=== PATIENT | female | born 1970 | race Caucasian/White ===

== ENCOUNTER 2016-04-02 18:17 | Emergency (ER) | payer SELFPAY | END 2016-04-02 21:42 | disposition home or self-care (01) | LOC: D.ER 18:17 | DX: G43.909 Migraine, unspecified, not intractable, without status migrainosus (principal); E11.9 Type 2 diabetes mellitus without complications; Z79.4 Long term (current) use of insulin; I10 Essential (primary) hypertension; G47.00 Insomnia, unspecified ==

== ENCOUNTER 2016-08-10 18:28 | Emergency (ER) | payer SELFPAY | END 2016-08-10 19:37 | disposition home or self-care (01) | LOC: D.ER 18:28 | DX: R51 Headache (principal); E11.9 Type 2 diabetes mellitus without complications; Z79.4 Long term (current) use of insulin; I10 Essential (primary) hypertension; G47.00 Insomnia, unspecified ==

== ENCOUNTER 2016-11-07 14:47 | Emergency (ER) | payer SELFPAY ==
[2016-11-07 17:19] LABS: BASOPHILS 0.3 % (0-2); EOSINOPHILS 1.8 % (0-7); HEMATOCRIT 47.7 % (36.0-48.0); HEMOGLOBIN 16.8 g/dL (12-16); IMMATURE GRANULOCYTES 0.5 % (0-5); MCH 33.4 pg (26.0-34.0); MCHC 35.2 g/dL (31.0-37.0); MCV 94.8 fL (80.0-100.0); MEAN PLATELET VOLUME 12.7 fL (7.4-10.4); MONOCYTES 7.8 % (2-11); NEUTROPHILS 66.6 % (40-80); PLATELET COUNT 221 10x3/uL (130-400); RBC 5.03 10x6/uL (4.00-5.40)
[2016-11-07 17:29] LABS: APPEARANCE HAZY (CLEAR); BILIRUBIN NEGATIVE (NEGATIVE); COLOR YELLOW (YELLOW); GLUCOSE 1000 mg/dL (NEGATIVE); KETONE MODERATE mg/dL (NEGATIVE); LEUKOCYTE ESTERASE 2+ (NEGATIVE); NITRITE NEGATIVE (NEGATIVE); PROTEIN TRACE mg/dL (NEGATIVE); SPECIFIC GRAVITY 1.015 (1.005-1.020); UROBILINOGEN NORMAL (NORMAL)
[2016-11-07 17:31] LABS: BACTERIA MODERATE /hpf (NONE SEEN); RED CELLS - URINE 0-5 /hpf (0-5); YEAST <1+ /hpf (NONE SEEN)
[2016-11-07 17:48] LABS: AMYLASE - SERUM 48 U/L (25-115); LIPASE 162 U/L (73-393)
== END 2016-11-07 21:11 | disposition home or self-care (01) ==
LOC: D.ER 14:47
PROVIDERS: Physician Assistant
DX: R10.13 Epigastric pain (principal); R11.2 Nausea with vomiting, unspecified; N39.0 Urinary tract infection, site not specified; E11.9 Type 2 diabetes mellitus without complications; Z79.4 Long term (current) use of insulin; I10 Essential (primary) hypertension; F17.200 Nicotine dependence, unspecified, uncomplicated

== ENCOUNTER 2016-11-14 04:18 | Emergency (ER) | payer SELFPAY | END 2016-11-14 04:47 | disposition home or self-care (01) | LOC: D.ER 04:18 | DX: R51 Headache (principal) ==

== ENCOUNTER 2016-12-05 16:17 | Emergency (ER) | payer OTHER | END 2016-12-05 18:14 | disposition home or self-care (01) | LOC: D.ER 16:17 | DX: R51 Headache (principal); E11.9 Type 2 diabetes mellitus without complications; Z79.4 Long term (current) use of insulin; I10 Essential (primary) hypertension; F17.200 Nicotine dependence, unspecified, uncomplicated ==

== ENCOUNTER 2017-10-12 19:26 | Emergency (ER) | payer OTHER ==
[~2017-10-12] VITALS: Ht 152.4 cm; Wt 68.2 kg
[2017-10-12 19:32] VITALS: Ht 152.4 cm; Wt 68.2 kg
[2017-10-12] MEDS ORDERED: HUMULIN R100 U/ML SC (19:33)
[2017-10-12] MEDS ORDERED: VICTOZA0.6 MG/0.1 SQ (19:34)
[2017-10-12] MEDS ORDERED: STADOL NASAL S2.5 ML (19:34)
[2017-10-12 19:57] LABS: BASOPHILS 0.4 % (0-2); EOSINOPHILS 3.9 % (0-7); HEMATOCRIT 41.4 % (36.0-48.0); HEMOGLOBIN 14.7 g/dL (12-16); IMMATURE GRANULOCYTES 0.4 % (0-5); LYMPHOCYTES 32.1 % (15-50); MCH 32.5 pg (26.0-34.0); MCHC 35.5 g/dL (31.0-37.0); MCV 91.6 fL (80.0-100.0); MEAN PLATELET VOLUME 12.5 fL (7.4-10.4); MONOCYTES 7.2 % (2-11); PLATELET COUNT 159 10x3/uL (130-400); RBC 4.52 10x6/uL (4.00-5.40); RDW 12.8 % (11.5-14.5); WBC 8.5 10x3/uL (4.8-10.8)
[2017-10-12 20:13] LABS: KETONE - SERUM NEGATIVE (NEGATIVE)
[2017-10-12 20:47] LABS: ALBUMIN 3.4 g/dL (3.4-5.0); ALKALINE PHOSPHATASE 97 U/L (46-116); ALT (SGPT) 34 U/L (10-68); BILIRUBIN - TOTAL 0.28 mg/dL (0.2-1.3); CALC OSMOLALITY 280 mosm/kg (275-300); CALCIUM 8.7 mg/dL (8.5-10.1); CARBON DIOXIDE 27.8 mmol/L (21.0-32.0); CHLORIDE - SERUM 97 mmol/L (98-107); GLUCOSE 386 mg/dL (74-106); POTASSIUM - SERUM 3.9 mmol/L (3.5-5.1); PROTEIN - SERUM 7.3 g/dL (6.4-8.2); SODIUM 133 mmol/L (136-145); UREA NITROGEN 10 mg/dL (7-18); eGFR NON AFRICAN AMERICAN 63 mL/min (90-120)
[2017-10-12] MEDS ORDERED: COMPAZINE10 MG PO (21:44)
[2017-10-12 22:09] LABS: APPEARANCE CLEAR (CLEAR); BILIRUBIN NEGATIVE (NEGATIVE); COLOR YELLOW (YELLOW); GLUCOSE 1000 mg/dL (NEGATIVE); KETONE NEGATIVE (NEGATIVE); NITRITE NEGATIVE (NEGATIVE); PROTEIN NEGATIVE (NEGATIVE); UROBILINOGEN NORMAL (NORMAL)
[2017-10-12 22:12] LABS: BACTERIA MODERATE /hpf (NONE SEEN); EPITHELIAL CELLS 0-5 /hpf (0-5); WHITE CELLS - URINE 0-5 /hpf (0-5)
[2017-10-12 22:13] LABS: YEAST >1+ WITH HYPHAE /hpf (NONE SEEN)
[2017-10-12 22:53] VITALS: BP 122/75
== END 2017-10-12 22:53 | disposition home or self-care (01) ==
LOC: D.ER 19:26
PROVIDERS: Family Medicine
DX: E11.65 Type 2 diabetes mellitus with hyperglycemia (principal); Z79.4 Long term (current) use of insulin; F17.200 Nicotine dependence, unspecified, uncomplicated

== ENCOUNTER 2017-12-16 19:28 | Emergency (ER) | payer OTHER ==
[~2017-12-16] VITALS: Ht 152.4 cm; Wt 77.3 kg
[~2017-12-16 19:28] MED LIST: COMPAZINE10 MG PO; HUMULIN R100 U/ML SC; STADOL NASAL S2.5 ML; VICTOZA0.6 MG/0.1 SQ
[2017-12-16 19:47] VITALS: Ht 152.4 cm; Wt 77.3 kg
[2017-12-16 21:05] VITALS: BP 185/86
== END 2017-12-16 21:08 | disposition home or self-care (01) ==
LOC: D.ER 19:28
DX: G43.909 Migraine, unspecified, not intractable, without status migrainosus (principal); E11.9 Type 2 diabetes mellitus without complications

== ENCOUNTER 2018-08-30 13:29 | Emergency (ER) | payer SELFPAY ==
[~2018-08-30] VITALS: Ht 152.4 cm; Wt 72.7 kg
[2018-08-30 13:44] VITALS: Ht 152.4 cm; Wt 72.7 kg
[2018-08-30] MEDS ORDERED: VERELAN PM100 MG PO (13:49)
[2018-08-30] MEDS ORDERED: PAXIL40 MG PO (13:49)
[2018-08-30] MEDS ORDERED: NEURONTIN 300300 MG PO (13:50)
[2018-08-30] MEDS ORDERED: MOBIC7.5 MG PO (13:50)
[2018-08-30] MEDS ORDERED: CATAPRES0.1 MG PO (13:50)
[2018-08-30] MEDS ORDERED: TOPROL XL100 MG PO (13:51)
[2018-08-30] MEDS ORDERED: TRAZODONE HCL150 MG PO (13:52)
[2018-08-30 14:46] LABS: ALBUMIN 3.2 g/dL (3.4-5.0); ALKALINE PHOSPHATASE 110 U/L (46-116); ALT (SGPT) 38 U/L (10-68); BILIRUBIN - TOTAL 0.33 mg/dL (0.2-1.3); CALC OSMOLALITY 280 mosm/kg (275-300); CALCIUM 8.8 mg/dL (8.5-10.1); CARBON DIOXIDE 28.4 mmol/L (21.0-32.0); CHLORIDE - SERUM 97 mmol/L (98-107); CREATININE - SERUM 0.9 mg/dL (0.6-1.3); GLUCOSE 371 mg/dL (74-106); POTASSIUM - SERUM 3.9 mmol/L (3.5-5.1); PROTEIN - SERUM 6.9 g/dL (6.4-8.2); SODIUM 133 mmol/L (136-145); UREA NITROGEN 12 mg/dL (7-18); eGFR NON AFRICAN AMERICAN 70 mL/min (90-120)
[2018-08-30 14:50] LABS: AMYLASE - SERUM 81 U/L (25-115); LIPASE 175 U/L (73-393); TROPONIN-I < 0.017 ng/mL (0.000-0.060)
[2018-08-30 14:57] LABS: BASOPHILS 0.3 % (0-2); EOSINOPHILS 2.7 % (0-7); HEMOGLOBIN 13.9 g/dL (12-16); IMMATURE GRANULOCYTES 0.4 % (0-5); LYMPHOCYTES 33.6 % (15-50); MCH 32.3 pg (26.0-34.0); MCHC 35.6 g/dL (31.0-37.0); MCV 90.7 fL (80.0-100.0); MEAN PLATELET VOLUME 11.9 fL (7.4-10.4); MONOCYTES 6.1 % (2-11); NEUTROPHILS 56.9 % (40-80); RDW 12.9 % (11.5-14.5); WBC 7.5 10x3/uL (4.8-10.8)
[2018-08-30 15:00] LABS: PLATELET COUNT 231 10x3/uL (130-400)
[2018-08-30 16:12] VITALS: BP 182/72
[2018-08-30] MEDS ORDERED: ZOFRAN ODT4 MG/UDTAB PO (16:12)
[2018-08-30] MEDS ORDERED: GOLYTELY SOLU4000 ML PO (16:12)
[2018-08-30 16:29] LABS: APPEARANCE HAZY (CLEAR); BILIRUBIN NEGATIVE (NEGATIVE); COLOR YELLOW (YELLOW); GLUCOSE 250 mg/dL (NEGATIVE); KETONE NEGATIVE (NEGATIVE); NITRITE NEGATIVE (NEGATIVE); PROTEIN NEGATIVE (NEGATIVE); UROBILINOGEN NORMAL (NORMAL)
[2018-08-30 16:33] LABS: BACTERIA MANY /hpf (NONE SEEN); EPITHELIAL CELLS 0-5 /hpf (0-5); RED CELLS - URINE 0-5 /hpf (0-5); WHITE CELLS - URINE 0-5 /hpf (0-5)
== END 2018-08-30 16:56 | disposition home or self-care (01) ==
LOC: D.ER 13:29
PROVIDERS: Family Medicine
DX: K59.00 Constipation, unspecified (principal); R10.9 Unspecified abdominal pain; R11.0 Nausea

== ENCOUNTER 2019-08-12 20:35 | Emergency (ER) | payer SELFPAY ==
[~2019-08-12] VITALS: Ht 162.6 cm; Wt 75.0 kg
[~2019-08-12 20:35] MED LIST changes: +CATAPRES0.1 MG PO; +GOLYTELY SOLU4000 ML PO; +MOBIC7.5 MG PO; +NEURONTIN 300300 MG PO; +PAXIL40 MG PO; +TOPROL XL100 MG PO; +TRAZODONE HCL150 MG PO; +VERELAN PM100 MG PO; +ZOFRAN ODT4 MG/UDTAB PO
[2019-08-12 20:55] VITALS: Ht 162.6 cm; Wt 75.0 kg
[2019-08-12] MEDS ORDERED: CYCLOBENZAPRINE10 MG PO (21:00)
[2019-08-12] MEDS ORDERED: RISPERDAL2 MG PO (21:01)
[2019-08-12] MEDS ORDERED: GLUCOPHAGE1000 MG PO (21:01)
[2019-08-12] MEDS ORDERED: GLUCOTROL ER2.5 MG PO (21:01)
[2019-08-12 22:27] VITALS: BP 128/91
== END 2019-08-12 22:27 | disposition home or self-care (01) ==
LOC: D.ER 20:35
DX: G43.909 Migraine, unspecified, not intractable, without status migrainosus (principal); I10 Essential (primary) hypertension; E11.9 Type 2 diabetes mellitus without complications; Z72.0 Tobacco use; Z79.84 Long term (current) use of oral hypoglycemic drugs